=== PATIENT | male | born 1990 | race Caucasian/White ===

== ENCOUNTER 2018-08-10 13:13 | Emergency (ER) | payer MEDICAID, SELFPAY ==
[2018-08-10 13:16] VITALS: BP 150/94; PULSE 136; RESP 16; TEMP 37.6; O2SAT 96
[2018-08-10 13:40] LABS: Bilirubin Negative (Negative); Blood Trace-intact (Negative); Clarity Clear; Glucose 500 mg/dL (Negative); Ketones 40 mg/dL (Negative); Leukocyte Esterase Negative (Negative); Nitrite Negative (Negative); Specific Gravity >= 1.030 (1.005-1.025); pH 5.5 (5-8)
[2018-08-10] MEDS: Normal Saline 2,000 ML 1000 ML IV ×2 (13:45→14:14)
--- NOTE | 2018-08-10 13:45 | ED.GENADUL_ITS ---
Discharge Plan Disposition Patient Disposition: [facility] Condition: Good Discharge Details Chief Complaint: PsychEval Clinical Impression: Depression with suicidal ideation, Acute dehydration Primary Care Provider: Dallin Crocker ED Provider: Mario Isbell Home Meds and New Rx's Prescriptions: No Action metformin 500 MG tablet 500 mg PO BID Qty: 180 RF: 4 insulin glargine [Lantus U-100 Insulin] 100 UNIT/1 ML solution 15 - 50 u Sub-Q nightly Qty: 5 RF: 3 insulin syringe-needle U-100 1 EACH syringe 1 ea Miscellaneous TID Qty: 100 RF: 5 insulin syringe-needle U-100 [BD Insulin Syringe] 1 EACH syringe 1 ea Miscellaneous BID Qty: 180 RF: 3 Medical Decision Making This is a pleasant 28-year-old male who presents for suicidal ideations and attempt. Last night he attempted to kill himself by putting a rope around his neck but did not jump off the chair. He states that he continually wants to kill himself and end his life. He clearly does have a plan. He did have a notable amount of drinking last night, as well as cocaine use. He denies any auditory or visual hallucinations. He denies any other recent suicidal attempts. Physical exam demonstrates no significant abnormalities except for moderate tachycardia. We will rehydrate the patient, evaluate for any significant electrolyte abnormality or other metabolic abnormality, consult mental health for further evaluation. 5:30 PM Patient's laboratory workup has returned demonstrates mild leukocytosis which I feel secondary to reactive leukocytosis from cocaine use notable dehydration. Patient was given 3 L of normal saline his heart rate is now normalized. He shows no signs of infection with no cough, no fever, negative urinalysis. No bandemia on workup. Electrolytes are within normal limits. TSH is normal. Salicylates and acetaminophen are normal. UDS is positive for cocaine. Patient does appear clinically sober at this time, and shows no signs of intoxication. The patient is able to speak clearly. There is no demonstration of any slurring of speech. There is evidence of clear decision making capacity. Patient is able to ambulate well without any difficulty. There are no signs of ataxia or stumbling motions. The patient continues to demonstrate and expressed suicidal thoughts. We contacted [facility], and I spoke with Dr. Shepard, he agrees with the current assessment plan and the need for inpatient admission. Patient will be transferred Via Electronic Prepress System Operator. I have extensively reviewed the treatment plan and discharge instructions with the patient and their family. I have addressed all patient concerns at this time. The patient and family was made aware of what symptoms to monitor for that would warrant a return to the emergency department. Discussed the plan with the patient and family, they demonstrate verbal understanding and agreement with our assessment and plan at this time. HPI General Date/Time Provider Initiated Documentation: 08/10/18 13:20 . HPI Narrative: This is a 28-year-old male with a past medical history of type 2 diabetes who does utilize insulin, who presents today for severe depression. The patient states that he has dealt with depression ever since high school, however over the last 24-48 hours he has become extremely depressed. He wants to end his life. He tried to hang himself last night, had a rope around his neck but did not jump off the chair. He states that it was thoughts of his young daughter that kept him from doing this. Also last night he went on a notable binge of alcohol and cocaine use. This morning he was supposed to move to a new house with his significant other and children, however he came here instead for evaluation of his thoughts. He denies any auditory or visual hallucinations. He denies any homicidal ideations. He is not taking his medications for quite some time secondary to lack of funding. Past surgical history is positive for right ankle surgery and appendectomy. He denies any pertinent family history. He denies any other complaints at this time. He denies any recent suicide attempts, or recent admission for hospitalization of suicide. Related Data Home Medications Medication Instructions Recorded Confirmed metformin 500 mg PO BID #180 tab-cap 01/03/17 08/10/18 insulin glargine [Lantus Vial] 15 - 50 u SUB-Q nightly #5 vial 01/19/17 08/10/18 insulin syringe-needle U-100 #100 syringe 01/31/17 insulin syringe-needle U-100 #180 syringe 02/05/17 [Insulin Syringe] Allergies Allergy/AdvReac Type Severity Reaction Status Date / Time No Known Allergies Allergy Unverified 08/10/18 13:22 General Stated Complaint: PsychEval CHRISSY: 2 Review of Systems Review of Systems All systems reviewed & are unremarkable except as noted in HPI and below PFSH Social History Smoking/Tobacco Use Status: Current every day Surgical History Appendectomy (09/07/96) Exam Narrative Exam Narrative: 1.Const: Well-nourished, Well-developed, appearing stated age 2.Eyes: PERRL, no conjunctival injection, and symmetrical lids. 3.ENT: Atraumatic external nose and ears. Moist MM. Neck: Symmetric, trachea midline, No thyromegaly. 4.CVS: +S1/S2, No murmurs or gallops. Peripheral pulses 2+ and equal in all extremities. Brisk capillary refill in all extremities. 5.RESP: Unlabored respiratory effort. Clear to auscultation bilaterally. No wheezes rales or rhonchi 6.GI: Soft, Nontender/Nondistended, No hepatosplenomegaly. No guarding or rebound. 7.MSK: Normocephalic/Atraumatic, Extremities w/o deformity or ttp No cyanosis or clubbing, Normal movement of all extremities 8.Skin: Warm, Dry. No rashes or lesions. 9.Neuro: senior product marketing manager II-XII grossly intact. Sensation grossly intact, no focal neurologic deficits. 10.Psych: Affect is appear depressed. Patient is emotionally labile, he is actively crying. Course Vital Signs Temperature 37.6 C 08/10/18 13:16 Pulse 136 H 08/10/18 13:16 Respiratory Rate 16 08/10/18 13:16 Blood Pressure 150/94 H 08/10/18 13:16 Pulse Oximetry 96 08/10/18 13:16 Temperature 37.6 C 08/10/18 13:16 Temperature Source Skin 08/10/18 13:16 Pulse 136 H 08/10/18 13:16 Respiratory Rate 16 08/10/18 13:16 Respiratory Effort Non-Labored 08/10/18 13:20 Blood Pressure 150/94 H 08/10/18 13:16 Pulse Oximetry 96 08/10/18 13:16 Pain Level 5 08/10/18 13:16
[2018-08-10 13:52] LABS: *AMPHETAMINES SCREEN URINE Negative (Negative); *BARBITURATES SCREEN URINE Negative (Negative); *BENZODIAZEPINES SCREEN URINE Negative (Negative); Cannabinoids THC Negative (Negative); Cocaine Screen,Urine POSITIVE (Negative); METHADONE URINE SCREEN Negative (Negative); OPIATES URINE SCREEN Negative (Negative)
[2018-08-10 13:53] LABS: Bacteria Negative HPF (Negative); C & S Indicated? No; Casts Negative LPF (Negative); Crystals Negative HPF (Negative); Epithelial Cells Negative HPF (Negative); Mucus Trace (Negative); Other Cells Rare Transitional (Negative); RBC 0-2 (0-2); WBC Negative HPF (0-5)
[2018-08-10 13:56] LABS: BE (Venous) -2.5 mmol/L (-3-3); HCO3 (Venous) 22 mmol/L (22-28); O2 Sat (Venous) 88 % (70-80); TCO2 (Venous) 19 mmol/L (22-29); pCO2 (Venous) 35 mm/Hg (34-47); pH (Venous) 7.41 (7.32-7.43); pO2 (Venous) 47 mm/Hg (28-44)
[2018-08-10 13:57] LABS: Tricyclic Antidepressants Negative (Negative)
[2018-08-10 14:18] LABS: Salicylate 3.6 mg/dL (2.8-20.0)
[2018-08-10 14:23] LABS: Acetaminophen < 2 ug/mL (10-30)
[2018-08-10 14:28] LABS: ALT 66 U/L (12-78); AST 15 U/L (15-37); Albumin 4.8 g/dL (3.4-5.0); Alkaline Phosphatase 123 U/L (46-116); Anion Gap 18.1 mmol/L (3-11); BUN 5 mg/dL (7-18); Bilirubin, Total 0.6 mg/dL (0.2-1.0); CO2 22.9 mmol/L (21.0-32.0); CREATININE 0.81 mg/dL (0.70-1.30); Calcium 9.2 mg/dL (8.5-10.1); Chloride 94 mmol/L (98-107); ETHANOL BLOOD 11.1 mg/dL (<3); Glucose 226 mg/dL (70-100); Potassium 3.5 mmol/L (3.5-5.1); Sodium 135 mmol/L (136-145); TSH 1.54 uIU/mL (0.358-3.74); Total Protein 8.8 g/dL (6.4-8.2)
[2018-08-10 14:55] LABS: Abs Immature Grans 0.04 k/cumm (0.0-0.09); Absolute Basophil Count 0.02 k/cumm (0.0-0.2); Absolute Eosinophil Count 0.02 k/cumm (0.0-0.7); Absolute Lymphocyte Count 2.24 k/cumm (1.2-3.4); Absolute Monocyte Count 0.95 k/cumm (0.11-0.7); Basophils % 0.1; Eosinophils % 0.1; HCT 46.1 % (40.0-50.0); HGB 17.5 g/dL (13.5-17.5); Immature Grans % 0.2; Lymphocytes % 13.7; Mean Corpuscular Hemoglobin 33.5 pg (27.0-33.0); Mean Corpuscular Volume 88.1 fL (80-95); Mean Platelet Volume 9.4 fL (8.0-11.0); Monocytes % 5.8; Neutrophils % 80.1; Platelet Count 251 x1000/uL (130-400); RBC 5.23 m/cumm (4.50-6.00); RBC Distribution Width 11.7 % (11.8-14.1); White Blood Cell Count 16.34 k/cumm (4.4-10.8)
[2018-08-10 14:59] LABS: Absolute Neutrophil Count 13.09 k/cumm (1.2-6.7)
[2018-08-10] MEDS: Normal Saline 1,000 ML 1000 ML IV (15:25)
[2018-08-10 15:29] VITALS: BP 136/89; PULSE 108; RESP 15; TEMP 36.7; O2SAT 97
[2018-08-10 16:27] VITALS: PULSE 96
--- NOTE | 2018-08-10 16:59 | PDOC.ERCMPRO ---
- If Service Date Differs Date of service: 08/10/18 Time of Service: 16:59 Care Management Progress Note Aravind reports suicidal thoughts last evening but did not follow through with the attempt. He has been appropriate and cooperative while in the ER. teacher physically impaired TESSY paged at [phone]. At approximately 1700, patient offered a bed at [facility]. Following doc to doc and nurse to nurse, Aravind will be transported via civil preparedness officer. Aravind's partner, Ghada, is in the room with Aravind. CM reviewed safety plan and plans for transport with patient and Ghada. Both are agreeable to the plan. VOLUNTARY FOR INPATIENT PSYCHIATRIC STABILIZATION. [facility] Participants: Ailyn, RN, Ghada, [facility], Peggy JONES CM, Summer, Nursing Biochemistry Technician. Time and Date: 08/10/18 1648 Safety plan has been established with patient, and care team, to adhere to patient goals, identify restrictions based on behavioral status, address nutrition, and determine allowed personal belongings, tools for hygiene and personal care. Determine level of activity including ambulation, level of supervision, visitors, and determine privileges based on behaviors and level of engagement by patient. SAFETY PLAN: 1. Will remain on suicide precautions and in paper clothes. 2. Will remain in room under direct supervision of one-on-one staff at all times provided by PEREZ, SOLAR ELECTRIC/PHOTOVOLTAIC INSTALLER senior project leader/team lead. 3. May have paper cups, plates, finger foods as well as a metal spoon with which to eat meals. [facility] staff will be responsible for accounting of utensils after meals. 4. Supervised bathroom privileges. 5. Comfort bath system only. 6. No personal belongings 7. May have visitors at patient discretion. 8. Follow [facility] Management of the Admitted Behavioral Health Patient policy printed and attached to the safety plan in physical chart. [facility] will be coordinating placement at inpatient facility, last updates included the following: Patient has been accepted at [facility]. Awaiting doc to doc and nurse to nurse prior to transport via [place] Web Project Manager. Patient is currently voluntarily. Please contact the Pocket Closer Underwater Trapper ([phone]) and [facility] Deli Clerk ([phone]) for any needed changes in the Safety Plan. Safety plan has been provided to Nursing Biochemistry Technician. - MH Services (Omit if N/A) Current MH Services: Psychiatric In ([facility])
[2018-08-10 17:05] VITALS: BP 140/93; PULSE 98; RESP 15; TEMP 37.1; O2SAT 97
--- NOTE | 2018-08-10 17:08 | CMPROGNOTE_ITS ---
- If Service Date Differs Date of service: 08/10/18 Time of Service: 16:59 Care Management Progress Note Aravind reports suicidal thoughts last evening but did not follow through with the attempt. He has been appropriate and cooperative while in the ER. mushroom growth media mixer TESSY paged at [phone]. At approximately 1700, patient offered a bed at [facility]. Following doc to doc and nurse to nurse, Aravind will be transported via progress clerk. Aravind's partner, Ghada, is in the room with Aravind. CM reviewed safety plan and plans for transport with patient and Ghada. Both are agreeable to the plan. VOLUNTARY FOR INPATIENT PSYCHIATRIC STABILIZATION. [facility] Participants: Ailyn, RN, Ghada, [facility], Peggy JONES CM, Summer, Nursing Practice Consultant. Time and Date: 08/10/18 1648 Safety plan has been established with patient, and care team, to adhere to patient goals, identify restrictions based on behavioral status, address nutrition, and determine allowed personal belongings, tools for hygiene and personal care. Determine level of activity including ambulation, level of supervision, visitors, and determine privileges based on behaviors and level of engagement by patient. SAFETY PLAN: 1. Will remain on suicide precautions and in paper clothes. 2. Will remain in room under direct supervision of one-on-one staff at all times provided by PEREZ, SUMMER CHILD CAREGIVER information manager. 3. May have paper cups, plates, finger foods as well as a metal spoon with which to eat meals. [facility] staff will be responsible for accounting of utensils after meals. 4. Supervised bathroom privileges. 5. Comfort bath system only. 6. No personal belongings 7. May have visitors at patient discretion. 8. Follow [facility] Management of the Admitted Behavioral Health Patient policy printed and attached to the safety plan in physical chart. [facility] will be coordinating placement at inpatient facility, last updates included the following: Patient has been accepted at [facility]. Awaiting doc to doc and nurse to nurse prior to transport via [place] Drilling And Production Superintendent. Patient is currently voluntarily. Please contact the Saddle Stitching Machine Operator Pigs Feet Cleaner ([phone]) and [facility] Quality Assurance Supervisor Chassis ([phone]) for any needed changes in the Safety Plan. Safety plan has been provided to Nursing Practice Consultant. - MH Services (Omit if N/A) Current MH Services: Psychiatric In ([facility])
--- NOTE | 2018-08-10 17:15 | NUR.NOTE ---
Nursing report given to Maeve Howard RN [facility].Nursing Note:
[2018-08-10 18:08] VITALS: BP 133/82; PULSE 98; RESP 16; TEMP 37.2; O2SAT 98
[2018-08-10 18:11] VITALS: BP 133/82; PULSE 98; RESP 16; TEMP 37.2; O2SAT 98
== END 2018-08-10 18:11 | disposition short-term general hospital (02) ==
PROVIDERS: Emergency Provider Student in an Organized Health Care Education/Training Program; PCP Family Medicine
DX: F32.9 Major depressive disorder, single episode, unspecified (principal); R45.851 Suicidal ideations; F10.10 Alcohol abuse, uncomplicated; F14.10 Cocaine abuse, uncomplicated; E11.9 Type 2 diabetes mellitus without complications; Z79.4 Long term (current) use of insulin
CPT/HCPCS: 36415; 80053; 80307; 82805; 93005; 96360; 96361; 99285; 80320; 80329; 81003; 81015; 84443; 85025; 93010

== ENCOUNTER 2018-08-20 08:30 | Outpatient (CLI) | payer MEDICAID, SELFPAY ==
[2018-08-20 11:26] LABS: Hemoglobin A1C 8.2 % (4.5-6.2)
== END 2018-08-20 08:50 ==
PROVIDERS: PCP Family Medicine; Visit Provider Family Medicine
DX: E11.9 Type 2 diabetes mellitus without complications (principal)
CPT/HCPCS: 36415; 83036

== ENCOUNTER 2019-11-03 10:21 | Outpatient (CLI) | payer MEDICAID, SELFPAY ==
[2019-11-03 13:02] LABS: Abs Immature Grans 0.01 k/cumm (0.0-0.09); Absolute Basophil Count 0.03 k/cumm (0.0-0.2); Absolute Eosinophil Count 0.12 k/cumm (0.0-0.7); Absolute Lymphocyte Count 2.46 k/cumm (1.2-3.4); Absolute Monocyte Count 0.63 k/cumm (0.11-0.7); Absolute Neutrophil Count 4.49 k/cumm (1.2-6.7); Basophils % 0.4; Eosinophils % 1.6; HCT 45.9 % (40.0-50.0); HGB 16.9 g/dL (13.5-17.5); Immature Grans % 0.1 %; Lymphocytes % 31.8; Mean Corp. HGB Concentration 36.8 g/dL (32.0-36.0); Mean Corpuscular Hemoglobin 32.1 pg (27.0-33.0); Mean Corpuscular Volume 87.3 fL (80-95); Mean Platelet Volume 10.2 fL (8.0-11.0); Monocytes % 8.1; Platelet Count 262 x1000/uL (130-400); RBC 5.26 m/cumm (4.50-6.00); RBC Distribution Width 11.8 % (11.8-14.1); White Blood Cell Count 7.74 k/cumm (4.4-10.8)
[2019-11-03 13:12] LABS: ALT 96 U/L (16-63); AST 35 U/L (15-37); Albumin 4.4 g/dL (3.4-5.0); Alkaline Phosphatase 88 U/L (46-116); Anion Gap 12.4 mmol/L (3-11); BUN 9 mg/dL (7-18); Bilirubin, Total 0.4 mg/dL (0.2-1.0); CO2 26.6 mmol/L (21.0-32.0); CREATININE 0.63 mg/dL (0.70-1.30); Calcium 9.5 mg/dL (8.5-10.1); Chloride 101 mmol/L (98-107); Cholesterol 246 mg/dL (<200); Glucose 60 mg/dL (74-106); HDL Cholesterol 24 mg/dL (40-60); Potassium 3.8 mmol/L (3.5-5.1); Sodium 140 mmol/L (136-145); TSH (W/Ref FT4) 1.54 uIU/mL (0.36-3.74); Total Protein 7.7 g/dL (6.4-8.2); Triglyceride 599 mg/dL (<150); Vitamin B12 962 pg/mL (193-986)
[2019-11-03 13:28] LABS: LDL CHOLESTEROL 138 mg/dL (<100)
== END 2019-11-03 10:41 ==
PROVIDERS: PCP Internal Medicine; Visit Provider Internal Medicine
DX: E11.9 Type 2 diabetes mellitus without complications (principal); R00.0 Tachycardia, unspecified; R50.9 Fever, unspecified
CPT/HCPCS: 36415; 80053; 80061; 83721; 82607; 84443; 85025

== ENCOUNTER 2019-11-04 03:35 | Outpatient (CLI) | payer MEDICAID, SELFPAY | END 2019-11-04 03:55 | PROVIDERS: PCP Internal Medicine; Visit Provider Internal Medicine | DX: R00.0 Tachycardia, unspecified (principal); I49.1 Atrial premature depolarization | CPT/HCPCS: 93225 ==

== ENCOUNTER 2019-11-07 09:17 | Outpatient (CLI) | payer MEDICAID, SELFPAY ==
--- NOTE | 2019-11-10 08:25 | W.HOLTRPT ---
Date of service: 11/10/19 Time of Service: 08:25 Holter Monitor Report Holter Monitor Note: There is a 48-hour Holter monitor ordered for indication of tachycardia. ?Patient was in normal sinus rhythm for the majority of the recording. ?The patient's mean heart rate was 103 bpm (77 bpm - 163 bpm) ?There were 0 episodes of supraventricular tachycardia and 9 singular premature atrial contractions. ?There were 0 episodes of ventricular tachycardia and 0 singular ventricular ectopic beats. ?There were 0 episodes of atrial fibrillation, no pauses greater than 3 seconds and no evidence of high degree heart block. ?Patient diary events were associated with sinus rhythm and sinus tachycardia up to 123 bpm.
== END 2019-11-07 09:37 ==
PROVIDERS: PCP Internal Medicine; Visit Provider Internal Medicine
DX: R00.0 Tachycardia, unspecified (principal); I49.1 Atrial premature depolarization
CPT/HCPCS: 93226

== ENCOUNTER 2019-11-19 11:10 | Outpatient (CLI) | payer MEDICAID, SELFPAY ==
[2019-11-19 12:58] LABS: Hemoglobin A1C 6.6 % (3.8-5.6)
[2019-11-19 13:08] LABS: Folate 17.2 ng/mL (8.6-20.0)
[2019-11-20 10:51] LABS: Campylobacter PCR Negative (Negative); Salmonella PCR Negative (Negative); Shiga Toxin PCR Negative (Negative); Shigella/Enteroinvasive Ecoli Negative (Negative)
== END 2019-11-19 11:30 ==
PROVIDERS: PCP Internal Medicine; Visit Provider Internal Medicine
DX: E11.9 Type 2 diabetes mellitus without complications (principal); R19.7 Diarrhea, unspecified
CPT/HCPCS: 36415; 87329; 87505; 82746; 83036; 87177; 87324

== ENCOUNTER 2020-02-24 08:24 | Outpatient (CLI) | payer MEDICAID, SELFPAY | END 2020-02-24 08:44 | PROVIDERS: PCP Nurse Practitioner; Visit Provider Internal Medicine Cardiovascular Disease | DX: R00.0 Tachycardia, unspecified (principal); R07.89 Other chest pain | CPT/HCPCS: 93005; 93010 ==

== ENCOUNTER 2020-03-09 01:15 | Outpatient (CLI) | payer MEDICAID, SELFPAY ==
--- NOTE | 2020-03-09 07:30 | DI.US_ITS ---
APPROVED REPORT EXAM: Comprehensive 2D, Doppler, and color-flow Echocardiogram Patient Location: Out-Patient Procurement Specialist: Ely Rojas RDCS (AE) Indications: Tachycardia Other Information Study Quality: Good Conclusion Left Ventricle : The left ventricle is normal size. The left ventricular systolic function is normal. The left ventricular ejection fraction is within the normal range. There is normal left ventricular wall thickness. There is normal LV segmental wall motion. The left ventricular diastolic function is normal. LVEF is 55-60%. Right Ventricle : The right ventricle is normal size. The right ventricular systolic function is norm al. The RVSP is 20 mmHg. Atria : The left atrium size is normal. The right atrium size is normal. Valves: There are no hemodynamically significant valvular lesions. Great Vessels : IVC is normal in size and collapses >50% with inspiration. There is no prior echocardiogram available for comparison. Wall motion Left Ventricle The left ventricle is normal size. The left ventricular systolic function is normal. The left ventric ular ejection fraction is within the normal range. There is normal left ventricular wall thickness. T here is normal LV segmental wall motion. The left ventricular diastolic function is normal. There is no ventricular septal defect visualized. LVEF is 55-60%. Right Ventricle The right ventricle is normal size. The right ventricular systolic function is normal. The RVSP is 20 mmHg. Atria The left atrium size is normal. The right atrium size is normal. The interatrial septum is intact wit h no evidence for an atrial septal defect. Aortic Valve The aortic valve is normal in structure. There is no aortic valvular stenosis. No aortic regurgitatio n is present. Mitral Valve The mitral valve is normal in structure. No evidence of mitral valve stenosis. Trace mitral regurgita tion. Tricuspid Valve The tricuspid valve is normal in structure. There is no tricuspid valve stenosis. Trace tricuspid reg urgitation. Pulmonic Valve The pulmonary valve is normal in structure. There is no pulmonic valvular stenosis. Trace pulmonic re gurgitation. Great Vessels The aortic root is normal in size. The ascending aorta is normal in size. IVC is normal in size and c ollapses >50% with inspiration. Pericardium There is no pericardial effusion. There is no pleural effusion. 2D Dimensions IVSD d PLAX 0.87 cm M: 0.6-1.2 LV Vol A2C d MOD 115.0 mL LVPW d PLAX 0.91 cm M: 0.6 - 1.2 LV Vol A4C d MOD 136.9 mL LVID d PLAX 4.38 cm M: 4.2 - 5.8 LA vol/ BSA A2C s A-L 13.2 mL/m2 LVDs 2.75 cm M: 2.5 - 4.0 LA vol/ BSA A4C s A-L 19.3 mL/m2 Ao Root d 3.24 cm M: 3.1 - 3.7 LA Vol/ BSA Biplane s A-L 17.7 mL/m2 RA Area A4C 14.37 cm2 LA Area A4C s MOD 16.38 cm2 RA Vol/ BSA A4C s A-L 14.7 mL/m2 LA Area A2C s MOD 12.22 cm2 Ao Asc Diam d 3.03 cm M: 2.6 - 3.4 LV EF A4C MOD 58.1 % LV EF Teichholz 66.4 % LV EF A2C MOD 53.8 % LVEF (Matias's) 54.83 % M: 52 - 72 LV EF Biplane MOD 54.8 % LV Volume 90.06 mL M: 62 - 150 LV Volume Index 38.00 mL/m2 M: 34 - 74 LV Vol Biplane MOD 126.7 mL FS 36.40 % M-Mode TAPSE 3.38 cm (M/F) >1.7 LV Diastology MV E' medial 0.082 (>0.07 m/s) E/A Ratio 1.5 LV E/e MED 11.75 (<14) MV E Vmax 0.97 (0.4-1.3 m/s) MV E' lateral 0.116 (>0.1 m/s) MV A Vmax 0.65 (0.4-1.3 m/s) LV E/e LAT 8.30 (<14) MV E/A Ratio 1.47 MV E/E' medial 11.79 MV E/E' lateral 8.32 Aortic Valve LVOT Area 2.90 cm2 AoV Area Vmax 2.60 cm2 LVOT Vmax 1.36 m/s AoV Area/ BSA (Vmax) 1.10 cm2/m2 LVOT Mean Joaquin. 0.97 m/s FREDO Mean Joaquin. 2.77 cm2 LVOT Peak Grad 7.4 mmHg FREDO Mean Joaquin. Index 1.17 cm2/m2 LVOT Mean Grad 4.2 mmHg LVOT VTI 0.263 m LVOT Diam s 1.90 cm AoV Vmax 1.52 m/s Velocity Ratio 0.89 AoV Mean Joaquin. 1.01 m/s AoV Peak Grad 9.3 mmHg LVOT SV 76.26 mL AoV Mean Grad 4.6 mmHg AoV VTI 0.293 m AoV Area VTI 2.61 cm2 AoV Area/ BSA (VTI) 1.10 cm/m2 Mitral Valve MV DT 204 (160-240 msec) MV PHT 59 msec MV Area PHT 3.71 cm2 Pulmonary Valve PV Vmax 1.01 (0.5-1.5 m/s) RVOT Peak Gr. 2.46 mmHg PV Peak Grad 4.1 mmHg RVOT Mean Gr. 1.30 mmHg PV Mean Grad 2.2 mmHg RVOT VTI 0.181 m PV VTI 0.220 m RVOT Vmax 0.78 m/s Tricuspid Valve TR Peak Grad 17.3 mmHg TR Vmax 2.08 m/s RA Pressure 3.00 mmHg RVSP (TR) 20.4 mmHg
--- NOTE | 2020-03-09 09:00 | ETT_ITS ---
APPROVED REPORT Exam: Exercise Treadmill Patient Location: Out-Patient Room/Bed: Stress Nurse: Tanna Waggoner RN BMI: 31.45 Baseline Rhythm: Sinus Rhythm Medical History Medical History: Depression, Diabetic ??? Insulin, Smoking Allergies: Bupropion Cardiac Risk Factors: Diabetes (insulin), FHX of CAD, Smoking Exercise History: Physically active Lung Sounds: Clear to auscultation Heart Sounds: Regular Stress Test Details Test: Exercise stress testing was performed using a Jonathon protocol. Rest Stress HR Resting HR Supine: 80 bpm Max Heart Rate (APMHR): 191 bpm Resting HR Standin bpm Target HR (85% APMHR): 162 bpm Max HR Achieved: 174 bpm % of APMHR: 91 Recovery HR: 99 bpm HR response to stress: Normal HR response to stress BP Resting BP Supine: 120/78 mmHg Resting BP Standin/80 mmHg Max BP: 148/64 mmHg Recovery BP: 122/78 mmHg BP response to stress: Normal blood pressure response to stress. ECG Resting ECG: Sinus Rhythm Stress ECG: Sinus Tachycardia ST Change: No significant ST segment changes Arrhythmia: None, APC's Recovery ECG: Sinus Rhythm Recovery ST Change: No significant ST segment changes Recovery Arrhythmia: None Clinical Reason for Termination: Fatigue Stress Symptoms: chest tightness Exercise duration: 12 min00 sec Highest Stage Reached: Stage 4: 4.2 mph at 16% grade. Exercise capacity: 13.48 METs Functional Capacity: Average Capacity Stress ECG Conclusion 1. Excised for 12 minutes (13 METS). Rate-pressure product was 25,000. 2. The patient had chest tightness but this did not limit his exercise. 3. Heart rate and blood pressure response were normal (heart rate dropped by greater than 12 bpm at 2 minutes of recovery) 4. There was no evidence of ischemia on the ECG portion of the exam. 5. The Pennington Score ( 7) estimates an annual cardiovascular mortality of 0% and a five year survival of 95%. Using the Pennington Score there is a low probability of any angiographic coronary disease. Stress Test Summary STAGE Time (mins) Speed (mph) Grade (%) HR BP SYMPTOMS METS Supine 80 120/78 Standing 87 124/80 3 9 3.4 14 3 out of 10 chest tightness 10.2 1 min recovery 122 148/64 3 min recovery 138 142/70 6 min recovery 148 126/74 chest tightness subsided. 9 min recovery 104 122/78
== END 2020-03-09 01:35 ==
PROVIDERS: PCP Nurse Practitioner; Visit Provider Internal Medicine Cardiovascular Disease
DX: R07.9 Chest pain, unspecified (principal); R00.0 Tachycardia, unspecified; F32.9 Major depressive disorder, single episode, unspecified; Z82.49 Family history of ischemic heart disease and other diseases of the circulatory system
CPT/HCPCS: 93017; 93306

== ENCOUNTER 2020-05-30 17:46 | Emergency (ER) | payer MEDICAID, SELFPAY ==
[2020-05-30 17:51] VITALS: BP 156/84; PULSE 100; RESP 16; TEMP 36.7; O2SAT 99
--- NOTE | 2020-05-30 18:29 | ED.GENADUL_ITS ---
Discharge Plan Disposition Patient Disposition: HOME Condition: Stable Discharge Details Chief Complaint: Chest/Rib Clinical Impression: Left rib fracture Primary Care Provider: Dacia Rojas ED Provider: Marion Tillman Home Meds and New Rx's Prescriptions: New lidocaine [Lidoderm] 5 % adhesive patch,medicated 1 patch TP DAILY PRN (Reason: pain) Qty: 15 RF: 0 Continued (DME) blood-glucose meter [OneTouch Ultra2 Meter] Misc See Rx Instructions .ROUTE .MEDSUPPLY Qty: 1 RF: 0 (DME) lancets [OneTouch UltraSoft Lancets] Misc See Rx Instructions .ROUTE .MEDSUPPLY Qty: 50 RF: 6 Glucerna 1 Pavel 0.04-1 gram-kcal/mL liquid See Rx Instructions PO DAILY MDD one bottle Qty: 237 RF: 12 insulin lispro [Humalog KwikPen Insulin] 100 unit/mL insulin pen 10 unit SC TID MDD 80 units Qty: 30 RF: 5 atenolol 50 mg tablet 50 mg PO DAILY Qty: 90 RF: 3 atorvastatin 40 mg tablet 40 mg PO DAILY Qty: 90 RF: 4 Glucagon Emergency Kit (human) 1 mg recon soln 1 mg SC Q20M PRN (Reason: hypoglycemia) Qty: 3 RF: 3 insulin glargine-lixisenatide 100 unit-33 mcg/mL insulin pen 25 unit SC BID RF: 0 (DME) Comfort EZ Pen [place] 33 gauge x 3/16 needle See Rx Instructions .ROUTE .MEDSUPPLY Qty: 300 RF: 3 (DME) blood sugar diagnostic [OneTouch Ultra Blue Test Strip] Strip See Rx Instructions .ROUTE .MEDSUPPLY Qty: 50 RF: 6 venlafaxine 150 mg capsule,extended release 24hr 150 mg PO DAILY Qty: 90 RF: 3 (DME) Dexcom G6 Sensor Device See Rx Instructions .ROUTE .MEDSUPPLY Qty: 9 RF: 4 (DME) Dexcom G6 Transmitter Device See Rx Instructions .ROUTE .MEDSUPPLY Qty: 2 RF: 4 gabapentin 300 mg capsule 300 mg PO TID Qty: 90 RF: 4 quetiapine 100 mg tablet 300 mg PO DAILY Qty: 90 RF: 4 acamprosate 333 mg tablet,delayed release (DR/EC) 666 mg PO BID Qty: 120 RF: 4 Discharge Instructions Instructions: Rib Fracture (ED) Additional Instructions: Alternate tylenol and motrin as needed and directed for pain. Use Lidoderm patch as needed and directed. Use the incentive spirometer as directed to encourage you to take deep breaths to prevent the development of pneumonia. Follow-up with your primary care doctor in 1 week. Return to the emergency department with any worsening or new concerning sympto ms. Discharge Data Discharge Date/Time-TO BE ENTERED AT DEPARTURE: 05/30/20 19:50 Discharge Physician: Marion Tillman Medical Decision Making 30-year-old male presents with left mid anterolateral rib pain after tripped and fell hitting his left ribs on cement a few hours prior to arrival. Normal oxygen saturation. Lungs clear. Abdomen soft nontender. Will refer for rib and chest x-ray and give a dose of Motrin and Lidoderm patch and reassess. X-ray notes minimally displaced left sixth rib fracture. Patient declines any narcotic pain medication as he is a recovering alcoholic. Sent with a prescr iption for Lidoderm patch. He was also given incentive spirometer. Advised to follow up with the primary care doctor for re-evaluation as needed. Usual and customary return precautions given prior to discharge. Medical Records Medical records reviewed: Yes I reviewed the patient's medical records. Imaging Data Radiologic Study: Radiologist's impression: XR RIBS LT W PA LAT CHEST CLINICAL HISTORY: L mid anterolateral rib pain TECHNIQUE: 2D digital imaging was performed. COMPARISON: CR CHEST 2 VIEWS PA,LAT from 07/25/2010 FINDINGS: MEDIASTINUM: Normal. HEART: Normal. PULMONARY VASCULATURE: Normal. LUNGS: Clear. PLEURAL SPACE: No pleural effusion or pneumothorax. BONE:Normal. LEFT RIBS: Minimally displaced fracture of the anterolateral aspect the left 6th rib. OTHER FINDINGS:Normal. IMPRESSION: 1. No acute pulmonary findings. 2. Minimally displaced fracture of the anterolateral aspect of the left 6th rib. HPI General Mode of arrival: ambulatory . Date/Time Provider Initiated Documentation: 05/30/20 17:51 . Limitations to Documentation: no limitations . Information obtained by: patient . HPI Narrative: Patient is a 30-year-old male who presents with left mid rib pain after tripping and falling and hitting his left ribs on cement a couple hours ago. Patient denies head injury, LOC, vomiting or any other injuries. He has not taken any medication for pain. He denies any abdominal pain. Related Data Home Medications Medication Instructions Recorded Confirmed pen needle, diabetic 33 gauge x #300 each 09/29/19 04/01/2001/04 blood sugar diagnostic #50 each 10/01/19 04/01/20 blood-glucose meter #1 each 10/01/19 04/01/20 lancets #50 each 10/01/19 04/01/20 venlafaxine 150 mg 150 mg PO DAILY #90 cap 10/06/19 05/30/20 capsule,extended release 24 hr glucagon (human recombinant) 1 mg 1 mg SC Q20M PRN #3 each 11/14/19 05/30/20 solution for injection insulin lispro 100 unit/mL 10 unit SC TID #30 ml MDD 80 units 11/19/19 04/01/20 subcutaneous pen blood-glucose sensor #9 each 12/12/19 04/01/20 blood-glucose transmitter #2 each 12/12/19 04/01/20 nut.tx.gluc intol,lf,soy-fiber See Rx Instructions PO DAILY #237 12/22/19 05/30/20 0.04 gram-1 kcal/mL liquid ml MDD one bottle insulin glargine 100 25 unit SC BID ml 02/13/20 05/30/20 unit-lixisenatide 33 mcg/mL subcutaneous pen gabapentin 300 mg capsule 300 mg PO TID #90 cap 03/04/20 05/30/20 quetiapine 100 mg tablet 300 mg PO DAILY #90 tab 03/04/20 05/30/20 acamprosate 333 mg tablet,delayed 666 mg PO BID #120 tab 03/19/20 05/30/20 release atenolol 50 mg tablet 50 mg PO DAILY #90 tab 04/01/20 05/30/20 atorvastatin 40 mg tablet 40 mg PO DAILY #90 tab 04/01/20 05/30/20 lidocaine [Lidoderm] 1 patch TP DAILY PRN #15 each 05/30/20 Previous Rx's Medication Instructions Recorded pen needle, diabetic 33 gauge x #300 each 09/29/1901/04 blood sugar diagnostic #50 each 10/01/19 blood-glucose meter #1 each 10/01/19 lancets #50 each 10/01/19 venlafaxine 150 mg 150 mg PO DAILY #90 cap 10/06/19 capsule,extended release 24 hr glucagon (human recombinant) 1 mg 1 mg SC Q20M PRN #3 each 11/14/19 solution for injection insulin lispro 100 unit/mL 10 unit SC TID #30 ml MDD 80 units 11/19/19 subcutaneous pen blood-glucose sensor #9 each 12/12/19 blood-glucose transmitter #2 each 12/12/19 nut.tx.gluc intol,lf,soy-fiber See Rx Instructions PO DAILY #237 12/22/19 0.04 gram-1 kcal/mL liquid ml MDD one bottle gabapentin 300 mg capsule 300 mg PO TID #90 cap 03/04/20 quetiapine 100 mg tablet 300 mg PO DAILY #90 tab 03/04/20 acamprosate 333 mg tablet,delayed 666 mg PO BID #120 tab 03/19/20 release atenolol 50 mg tablet 50 mg PO DAILY #90 tab 04/01/20 atorvastatin 40 mg tablet 40 mg PO DAILY #90 tab 04/01/20 lidocaine [Lidoderm] 1 patch TP DAILY PRN #15 each 05/30/20 Allergies Allergy/AdvReac Type Severity Reaction Status Date / Time bupropion [From Wellbutrin] AdvReac Severe nightmares, Verified 04/01/20 14:16 anger lobster Allergy Mild Uncoded 05/30/20 17:55 General Stated Complaint: Chest/Rib CHRISSY: 3 Review of Systems All systems reviewed & are unremarkable except as noted in HPI and below Constitutional Constitutional: Reports as per HPI, Denies chills and Denies fever(s) Eyes Eyes: Denies blurry vision ENT Ears, Nose, Mouth, and Throat: Denies dizziness, Denies sore throat and Denies throat swelling Cardiovascular Cardiovascular: Denies chest pain and Denies dyspnea Respiratory Respiratory: Denies cough and Denies dyspnea Gastrointestinal Gastrointestinal: Denies abdominal pain, Denies diarrhea and Denies vomiting Genitourinary Genitourinary: Denies hematuria and Denies dysuria Musculoskeletal Musculoskeletal: Denies back pain and Denies numbness Integumentary/Breasts Skin/Breast: Denies lesions and Denies rash Neurologic Neurologic: Denies dizziness, Denies localized weakness and Denies numbness Allergic/Immunologic Allergic/Immunologic: Denies throat swelling [facility] Medical History (Updated 05/30/20 @ 19:23 by Marion Tillman DO) Cocaine use (Inactive ~08/10/18) Encopresis (Inactive) Enuresis (Inactive) Fracture of right forearm (Inactive 05/19/95) History of ETOH abuse (Acute) Substance abuse (Inactive) Surgical History Appendectomy (09/07/96) Status post appendectomy (Inactive 09/07/96) Social History Smoking/Tobacco Use Status: Current every day Alcohol Intake: former Drug use: Binges Substance use type: does not use Seatbelt use: always Helmet use: Yes Do you feel safe in your relationship?: No Exam Const General: cooperative, healthy appearing, uncomfortable (With any movement) and no acute distress HENMT Head: normal to inspection Face and sinus: normal facial exam Eyes General: appearance normal, both eyes and all related structures EOM: EOM intact bilaterally Neck Neck: normal visual inspection and No submandibular swelling Lymphatic: no lymphadenopathy noted Chest Chest: normal inspection of the chest Chest/axillae images: 1. Tenderness to palpation of mid anterior lateral ribs just below and lateral to nipple line. There is no crepitus, ecchymosis, erythema, step-off or open wounds noted. Resp Effort & Inspection: normal respiratory effort and able to speak in complete sentences Auscultation: clear to auscultation bilaterally Cardio Rate: regular rate Rhythm: regular rhythm GI Inspection: normal to inspection Palpation: soft, not firm, not rigid and nontender Auscultation: normal bowel sounds Skin General skin exam: no rashes or lesions noted Neuro General: patient alert, patient awake and patient oriented x3 Cognition: normal cognition Speech: speech normal Motor: muscle tone normal throughout Sensory Exam: no sensory deficits noted Extrem General: normal to inspection, full ROM, capillary refill normal, no calf tenderness bilaterally and no edema Psych Appearance: grossly normal Mental Status: mental status grossly normal Speech and Movement: speech and movement normal Affect: normal affect Course Vital Signs Vital signs: Vital Signs Temperature 98.1 F 05/30/20 17:51 Pulse 100 H 05/30/20 17:51 Respiratory Rate 16 05/30/20 17:51 Blood Pressure 156/84 H 05/30/20 17:51 Pulse Oximetry 99 05/30/20 17:51 Temperature 98.1 F 05/30/20 17:51 Temperature Source Skin 05/30/20 17:51 Pulse 100 H 05/30/20 17:51 Respiratory Rate 16 05/30/20 17:51 Respiratory Effort Non-Labored 05/30/20 18:12 Respiratory Depth Normal 05/30/20 18:12 Respiratory Pattern Normal 05/30/20 18:12 Blood Pressure 156/84 H 05/30/20 17:51 Blood Pressure Position Sitting 05/30/20 17:51 Pulse Oximetry 99 05/30/20 17:51 Oxygen Delivery Method Room Air 05/30/20 17:51 Oxygen Flow Rate 0 05/30/20 17:51 Pain Level 8 05/30/20 18:12
[2020-05-30] MEDS: Lidocaine 5% Patch 1 PATCH TP (18:54)
[2020-05-30] MEDS: Ibuprofen 600 MG TAB PO (18:55)
--- NOTE | 2020-05-30 19:17 | DI.VRAD_ITS ---
PROCEDURE INFORMATION: Exam: XR Left Ribs Exam date and time: 05/30/2020 6:46 PM Age: 30 years old Clinical indication: Other: L mid anterolateral rib pain; Other: Fell on lt side; Patient HX: Marked ribs films with bb TECHNIQUE: Imaging protocol: XR Left ribs. Views: 2 views. COMPARISON: No relevant prior studies available. FINDINGS: Bones/joints: Minimally displaced fracture involves the anterolateral segment of the left 6th rib. No other acute left-sided rib fracture identified. Soft tissues: No left-sided parenchymal lung contusion or evidence of pneumothorax/pleural effusion is noted. IMPRESSION: No acute findings. PROCEDURE INFORMATION: Exam: XR Chest, 2 Views Exam date and time: 05/30/2020 6:46 PM Age: 30 years old Clinical indication: Other: L mid anterolateral rib pain; Other: Fell on lt side; Patient HX: Marked ribs films with bb TECHNIQUE: Imaging protocol: XR of the chest Views: 2 views. COMPARISON: No relevant prior studies available. FINDINGS: Lungs: Lungs are clear throughout with no mass or consolidation detected. Pleural space: No pneumothorax or pleural effusion is seen. Heart/Mediastinum: Heart size is normal and vessel margins are sharply defined. Bones/joints: Minimally displaced fracture involving the anterolateral segment of the left 6th rib is seen better on rib detail views from the same day. IMPRESSION: Minimally displaced fracture involving the anterolateral left 6th rib is more conspicuous on rib detail views from the same day and there is no other evidence of an acute cardiopulmonary process. Dictated and Authenticated by: Vinay Joy MD. Ordering:BLESSING Schultz MD
== END 2020-05-30 19:50 | disposition home or self-care (01) ==
PROVIDERS: Emergency Provider Physician Assistant; PCP Nurse Practitioner
DX: S22.32XA Fracture of one rib, left side, initial encounter for closed fracture (principal); W10.8XXA Fall (on) (from) other stairs and steps, initial encounter
CPT/HCPCS: 99283; 71046; 71100

== ENCOUNTER 2020-08-16 11:34 | Outpatient (CLI) | payer MEDICAID, SELFPAY ==
[2020-08-18 19:28] LABS: Patient Race White; SARS-CoV-2 RNA Undetected (Undetected); SARS-CoV-2 Specimen Source Nasal
== END 2020-08-16 11:54 ==
PROVIDERS: PCP Nurse Practitioner; Visit Provider Nurse Practitioner
DX: R05 Cough (principal)
CPT/HCPCS: U0003

== ENCOUNTER 2021-11-29 19:01 | Outpatient (REF) | payer MEDICAID, SELFPAY ==
[2021-11-29 22:19] LABS: Bilirubin Negative (Negative); Blood Negative (Negative); Clarity Clear (Clear); Glucose 100 mg/dL (Negative); Ketones Negative (Negative); Leukocyte Esterase Negative (Negative); Nitrite Negative (Negative); Specific Gravity >= 1.030 (1.005-1.025)
[2021-11-29 22:26] LABS: Bacteria Few HPF (Negative); Epithelial Cells Negative HPF (Negative); RBC Negative HPF (0-2); WBC 0-2 HPF (0-5)
[2021-11-29 22:27] LABS: C & S Indicated? No; Crystals Many Calcium Oxalate HPF (Negative); Mucus Heavy (Negative)
[2021-11-29 22:43] LABS: Microalb ug/mg Crea 28.2 ug/mg Cr
== END 2021-11-29 19:02 | disposition home or self-care (01) ==
LOC: LBN 19:01
PROVIDERS: PCP Nurse Practitioner Family; Visit Provider Family Medicine
DX: N39.0 Urinary tract infection, site not specified (principal); E11.9 Type 2 diabetes mellitus without complications; Z79.4 Long term (current) use of insulin
CPT/HCPCS: 81003; 81015; 82043; 82570

== ENCOUNTER 2024-05-11 20:49 | Emergency (ER) | payer SELFPAY ==
[2024-05-11] VITALS (42 sets, daily range): BP systolic 110–167; BP diastolic 80–114; PULSE 89–119; RESP 15–27; O2SAT 92–100
--- NOTE | 2024-05-11 20:45 | DI.CT_ITS ---
Exam(s) CT HEAD CERVICAL SPINE WO EXAM: CT HEAD CERVICAL SPINE WO CLINICAL HISTORY: TRAUMA. TECHNIQUE: Imaging Protocol: Axial computed tomography images with coronal and sagittal reformatted images were created and reviewed COMPARISON: No priors for comparison. FINDINGS: CT Head: Ventricles and Extra axial spaces: Normal in size and morphology for the patient's age. Hemorrhage: None. Cerebral parenchyma: Normal. Midline shift: None. Brainstem/Cerebellum: Normal. Calvarium: There is a comminuted mildly depressed fracture of the posterolateral wall of the left max illary sinus. There is also a comminuted fracture involving the anterior wall of the left maxillary sinus. There is a fluid level in the left maxillary sinus. Visualized Paranasal sinuses/Mastoids: Clear. Soft Tissues: There is soft tissue swelling over the left temporal and parietal bones. CT Cervical Spine: Bones: There is an acute fracture involving the anterior aspect of the right superior facet of C2. T he fracture shows no significant displacement. There is also comminuted fracture involving the anter ior aspect of the right aspect of the foramen magnum extending into the right occipital condyle. The re is mild displacement superiorly of the medial fracture fragments. Soft Tissues: Unremarkable. Lung Apices: Clear. IMPRESSION: 1. Fractures involving the anterior and posterior lateral anna of the left maxillary sinus which are mildly comminuted and depressed. There is fluid level in the left maxillary sinus likely reflecting hemorrhage. 2. No intracranial hemorrhage or acute abnormality. 3. Soft tissue swelling over the left temporal and parietal bones. 4. Acute nondisplaced fracture involving the anterior aspect of the right superior C2 facet. 5. Comminuted mildly displaced fracture involving the anterior aspect of the foramen magnum extending into the right occipital condyle. 6. Please refer to the CT scan of the chest, abdomen and pelvis for further details. RADIATION DOSE DELIVERED: Total DLP DATA REPOSITORY: All CT scans at this facility are submitted to the National Radiology Data Registry (NRDR) Dose Index Registry (DIR) with the [employer] (A[employer]). RADIATION OPTIMIZATION: All CT scans at this facility use at least one of these dose optimization te chniques: automated exposure control; mA and/or kV adjustment per patient size (includes targeted exa ms where dose is matched to clinical indication); or iterative reconstruction.
--- NOTE | 2024-05-11 20:59 | DI.CT_ITS ---
Exam(s) CT CHEST/ABD/PEL W CT THORACIC LUMBAR SPINE REC EXAM: CT CHEST/ABD/PEL W and CT thoracic and lumbar spine recons CLINICAL HISTORY: TRAUMA TECHNIQUE: Imaging Protocol: Axial computed tomography images with coronal and sagittal reformatted images were created and reviewed CONTRAST MATERIAL: Intravenous: Omnipaque 350 contrast volume:100 mL Oral: No COMPARISON: CT CT CHEST/ABD/PEL W from 05/11/2024 FINDINGS: CHEST: Tracheobronchial tree: Patent where visualized. Pulmonary parenchyma: No consolidation or dominant measurable mass. No architectural distortion. Visualized thyroid gland: Unremarkable. Mediastinum and Roseanna: No dominant adenopathy or fluid collection. The esophagus is unremarkable. Pleura: No effusion or pneumothorax. Heart: The heart is not dilated. No coronary artery calcifications are seen. No pericardial effusion. Pulmonary arteries: Due to the timing of the bolus, the pulmonary arteries are suboptimally opacified for evaluation of pulmonary emboli. No large central pulmonary embolus is seen. Aorta: Thoracic aorta non-dilated. Lymph nodes: Within normal limits. Soft tissues: Mild bilateral gynecomastia. Bones:There is a comminuted displaced fracture of the medial left clavicle. There is surrounding hem atoma and infiltration of the subcutaneous fat. There are nondisplaced fractures involving the anter ior aspects of the left 2nd, 3rd, 4th and 5th ribs. Thoracic spine recons: No acute fracture or subluxation. ABDOMEN: Liver: Normal density. No measurable mass. Portal, Superior Mesenteric, and Splenic Veins: Unremarkable. Gallbladder and Biliary Tract: No radiodense calculus or dilation. Pancreas: Normal density, no abnormal calcifications or inflammatory process. Spleen: Normal. Adrenals: No masses seen. Kidneys: Normal size, contour and axis. No radiodense stones or obstructive uropathy. No masses seen. Abdominal Aorta: Abdominal portion non-dilated. Bowel: No obstruction or bowel wall thickening. No evidence of appendicitis. Peritoneal Cavity: No ascites, collection or mesenteric inflammatory response. No free air. Lymph Nodes: Within normal limits. Bones: Within normal limits for the patient's age. Soft Tissues: Unremarkable. PELVIS: Bladder: Symmetric distention, no gross wall thickening. Reproductive Organs: Unremarkable as visualized. Lymph Nodes: Within normal limits. Bones: Within normal limits. Lumbar spine recons: No acute fracture or subluxation. IMPRESSION: 1. There is an acute comminuted displaced fracture involving the medial left clavicle with associated hematoma. 2. No definite evidence of vascular injury. 3. Nondisplaced fractures involving the left 2nd through 5th ribs. No pneumothorax. 4. No acute abdominal or pelvic organ injury. 5. No acute fracture or subluxation in the thoracic or lumbar spine. RADIATION DOSE DELIVERED: Total DLP DATA REPOSITORY: All CT scans at this facility are submitted to the National Radiology Data Registry (NRDR) Dose Index Registry (DIR) with the [employer] (ACR). RADIATION OPTIMIZATION: All CT scans at this facility use at least one of these dose optimization te chniques: automated exposure control; mA and/or kV adjustment per patient size (includes targeted exa ms where dose is matched to clinical indication); or iterative reconstruction.
[2024-05-11 21:12] LABS: Abs Immature Grans 0.09 10^3/uL (0.0-0.06); Absolute Basophil Count 0.05 10^3/uL (0.0-0.2); Absolute Eosinophil Count 0.02 10^3/uL (0.0-0.7); Absolute Lymphocyte Count 1.36 10^3/uL (1.2-3.4); Absolute Monocyte Count 0.62 10^3/uL (0.1-0.8); Absolute Neutrophil Count 5.45 10^3/uL (1.2-6.7); Basophils % 0.7 %; Eosinophils % 0.3 %; HCT 46.5 % (40.0-50.0); HGB 17.2 g/dL (13.5-17.5); Immature Grans % 1.2 %; Lymphocytes % 17.9 %; MCH 32.4 pg (27.0-33.0); MCV 88 fL (80-95); Monocytes % 8.2 %; Neutrophils % 71.7 %; Platelet Count 284 10^3/uL (130-400); RBC 5.31 10^6/uL (4.36-5.78); RDW 13.2 % (11.8-14.1); RDW-SD 41.5 fL; WBC 7.59 10^3/uL (4.4-10.8)
[2024-05-11] MEDS: Normal Saline - Diluent 50 ML VIAL IJ (21:17)
[2024-05-11] MEDS: Omnipaque 350 MG/ML 100 ML BTL IJ (21:18)
[2024-05-11 21:22] LABS: Magnesium 2.1 mg/dL (1.8-2.4)
[2024-05-11 21:24] LABS: PTT Activated 21.2 sec (23.6-32.8)
[2024-05-11 21:27] LABS: ALT 369 U/L (16-63); AST 486 U/L (15-37); Albumin 4.4 g/dL (3.4-5.0); Alkaline Phosphatase 104 U/L (46-116); Anion Gap 16.7 mmol/L (3-11); BUN 11 mg/dL (7-18); Bilirubin, Total 0.42 mg/dL (0.2-1.0); CO2 25.3 mmol/L (21.0-32.0); CREATININE 0.9 mg/dL (0.70-1.30); Calcium 9.3 mg/dL (8.5-10.1); Chloride 93 mmol/L (98-107); Creatine Kinase 183 U/L (39-308); Estimated GFR 115.65 (mL/min/1.73m2); Glucose 446 mg/dL (74-106); Potassium 4.1 mmol/L (3.5-5.1); Sodium 135 mmol/L (136-145); Total Protein 8.3 g/dL (6.4-8.2)
[2024-05-11 21:29] LABS: ETHANOL BLOOD 164.6 mg/dL (<10)
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
[2024-05-11] MEDS: Ondansetron 4 MG/2 ML VIAL (22:18)
[2024-05-11] MEDS: ACETAMINOPHEN 1,000 MG/100 ML BTL 400 MG IVPB (22:19)
[2024-05-11] MEDS: MORPHine 4 MG/ML SYR (23:43)
--- NOTE | 2024-05-14 09:18 | NUR.NOTE ---
Access chart to reconcile EKG in [employer]) with orders in [employer]. Duplicate order cancelled. Nursing Note:
== END 2024-05-11 23:50 | disposition short-term general hospital (02) ==
LOC: ER 23:07
PROVIDERS: Emergency Provider Emergency Medicine; PCP Nurse Practitioner Family
DX: S12.191A Other nondisplaced fracture of second cervical vertebra, initial encounter for closed fracture (principal); S02.113A Unspecified occipital condyle fracture, initial encounter for closed fracture; S02.842A Fracture of lateral orbital wall, left side, initial encounter for closed fracture; S42.012A Anterior displaced fracture of sternal end of left clavicle, initial encounter for closed fracture; S22.42XA Multiple fractures of ribs, left side, initial encounter for closed fracture; E11.9 Type 2 diabetes mellitus without complications; F17.290 Nicotine dependence, other tobacco product, uncomplicated; Z79.4 Long term (current) use of insulin; Y90.6 Blood alcohol level of 120-199 mg/100 ml
CPT/HCPCS: 74177; 80053; 82550; 86850; 86900; 86901; 96365; 99285; 70450; 71260; 72125; 80320; 83735; 85025; 85610; 85730; J0131; J2270; J2405; J3490

== ENCOUNTER 2024-09-21 11:37 | Emergency (ER) | payer MEDICAID, SELFPAY ==
[2024-09-21 11:45] VITALS: BP 137/85; PULSE 105; RESP 16; TEMP 36.6; O2SAT 98
--- NOTE | 2024-09-21 12:10 | W.ED.GENAD ---
Discharge Plan Disposition Patient Disposition: Home Condition: Stable Discharge Details Clinical Impression: Abscess of back Primary Care Provider: Bayron Mooney ED Provider: Oralia Colon Meds and New Rx's Prescriptions: New cephalexin 500 mg capsule 500 mg PO BID 10 Days Qty: 20 0RF Rx Instructions: Take 1 capsule twice daily for 10 days sulfamethoxazole-trimethoprim [Bactrim DS] 800-160 mg tablet 1 tab PO BID 10 Days Qty: 20 0RF No Action sildenafil [Viagra] 50 mg tablet 50 mg PO DAILY PRN (Reason: sexual activity) Qty: 30 0RF Rx Instructions: administer 30 minutes to 4 hours before activity Glucagon Emergency Kit (human) 1 mg recon soln 1 mg SC Q20M PRN (Reason: hypoglycemia) Qty: 3 3RF Rx Instructions: until response naloxone 0.4 mg/mL solution 0.2 mg subcut ONCE PRN Rx Instructions: Inject 0.5 mLs into the muscle PRN. Pay repeat 0.2 mg Q1 minute until responsive/VS improve. DO NOT exceed 2 mg total dose. (DME) pen needle, diabetic [Pen Needle] 30 gauge x 5/16 needle See Rx Instructions .Route Rx Instructions: Inject 1 each Subcut QHS for diabetes (DME) blood-glucose meter [FreeStyle Lite Meter] Kit See Rx Instructions .Route Rx Instructions: As directed acetaminophen 325 mg capsule 975 mg PO Q6H PRN (DME) Dexcom G6 Polisher Apprentice Misc See Rx Instructions .MEDSUPPLY Qty: 1 0RF Rx Instructions: As directed (DME) Dexcom G6 Sensor Device See Rx Instructions .MEDSUPPLY Qty: 3 12RF Rx Instructions: As directed (DME) Dexcom G6 Transmitter Device See Rx Instructions .MEDSUPPLY Qty: 1 3RF Rx Instructions: As directed insulin glargine [Lantus Solostar U-100 Insulin] 100 unit/mL (3 mL) insulin pen 60 unit subcut DAILY Qty: 54 3RF insulin lispro [Humalog KwikPen Insulin] 100 unit/mL insulin pen 4 unit subcut TID Qty: 15 3RF methocarbamol 750 mg tablet 750 mg PO QD-QID Qty: 90 0RF Rx Instructions: Take 1 tablet Po TID x3 days and then take 1 tablet BID x4D. mirtazapine 7.5 mg tablet 7.5 mg PO QHS Qty: 90 3RF (DME) pen needle, diabetic 31 gauge x 5/16 needle See Rx Instructions .Route Qty: 100 3RF Rx Instructions: Inject 1 each Subcut TID before meals for diabetes atenolol 100 mg tablet 100 mg PO DAILY Qty: 90 3RF venlafaxine 75 mg tablet 225 mg PO DAILY Qty: 270 3RF gabapentin 300 mg capsule 300 mg PO TID Patient Comments: take 1 capsule by mouth three times a day ibuprofen 600 mg tablet 600 mg PO Q8H PRN Patient Comments: take 1 tablet by mouth every 8 hours NEEDED FOR PAIN Discharge Instructions Instructions: Abscess Incision and Drainage ED Additional Instructions: Please take the antibiotic with yogurt or a probiotic twice daily for the next 10 days. Keep area clean and dry. Please have the packing removed in approximately 3 days. If it falls out before then that is okay. You may alternate ice and heat. Please take Tylenol or Ibuprofen with food every 4-6 hours as needed for pain and swelling. Follow up with primary care provider in 3-5 days. Return to ED sooner if any worsening swelling, fever or chills or concerns. Thank you for allowing us to care for you today. Referrals: Bayron Mooney NP [Primary Care Provider] - 5 days Discharge Data Discharge Date/Time-TO BE ENTERED AT DEPARTURE: 09/21/24 12:56 HPI General Mode of arrival: ambulatory. Date/Time Provider Initiated Documentation: 09/21/24 11:44. Limitations to Documentation: no limitations. Information obtained by: patient, RN notes reviewed and old records reviewed. HPI Narrative: 34-year-old male presents to the ER with a upper back abscess which he noticed 3 days ago. He has approximately 4 cm x 4 cm area of indurated erythemic tender raised area to his upper back. He is a diabetic, does have a history of substance abuse and cocaine use. He is a daily smoker. He does not appear to be under the influence at this time. Denies any fever or chills, he is slightly tachycardic upon arrival with a pulse of 105 he is afebrile. He reports he has had a history of MRSA. Related Data Home Medications ?Medication ?Instructions ?Recorded ?Confirmed glucagon (human recombinant) 1 mg 1 mg subcut Q20M PRN hypoglycemia 11/14/19 09/21/24 solution for injection (Glucagon #3 ea Emergency Kit) sildenafil 50 mg tablet (Viagra) 50 mg PO DAILY PRN sexual activity 06/24/21 09/21/24 #30 tabs acetaminophen 325 mg capsule 975 mg PO Q6H PRN 05/20/24 09/21/24 blood-glucose meter (FreeStyle 05/20/24 09/21/24 Lite Meter kit) naloxone 0.4 mg/mL injection 0.2 mg subcut ONCE PRN 05/20/24 09/21/24 solution pen needle, diabetic 30 gauge x 05/20/24 09/21/24 5/ (Pen Needle) blood-glucose meter,continuous #1 ea 06/02/24 09/21/24 (Dexcom G6 Polisher Apprentice) blood-glucose sensor (Dexcom G6 #3 ea 06/02/24 09/21/24 Sensor device) blood-glucose transmitter (Dexcom #1 ea 06/02/24 09/21/24 G6 Transmitter device) insulin glargine 100 unit/mL (3 60 unit (0.6 mL) subcut DAILY #54 06/02/24 09/21/24 mL) subcutaneous pen (Lantus mL Solostar U-100 Insulin) insulin lispro 100 unit/mL 4 unit (0.04 mL) subcut TID #15 mL 06/02/24 09/21/24 subcutaneous pen (Humalog KwikPen (U-100) Insulin) methocarbamol 750 mg tablet 750 mg PO QD-QID #90 tabs 06/02/24 09/21/24 mirtazapine 7.5 mg tablet 7.5 mg PO QHS #90 tabs 06/02/24 09/21/24 pen needle, diabetic 31 gauge x #100 ea 06/02/24 09/21/24/16 atenolol 100 mg tablet 100 mg PO DAILY #90 tabs 06/26/24 09/21/24 venlafaxine 75 mg tablet 225 mg (3 x 75 mg) PO DAILY #270 06/26/24 09/21/24 tabs cephalexin 500 mg capsule 500 mg PO BID Abscess 10 days #20 09/21/24 caps gabapentin 300 mg capsule 300 mg PO TID 09/21/24 09/21/24 ibuprofen 600 mg tablet 600 mg PO Q8H PRN 09/21/24 09/21/24 sulfamethoxazole 800 1 tab PO BID 10 days #20 tabs 09/21/24 mg-trimethoprim 160 mg tablet (Bactrim DS) Previous Rx's ?Medication ?Instructions ?Recorded glucagon (human recombinant) 1 mg 1 mg subcut Q20M PRN hypoglycemia 11/14/19 solution for injection (Glucagon #3 ea Emergency Kit) sildenafil 50 mg tablet (Viagra) 50 mg PO DAILY PRN sexual activity 06/24/21 #30 tabs blood-glucose meter,continuous #1 ea 06/02/24 (Dexcom G6 Polisher Apprentice) blood-glucose sensor (Dexcom G6 #3 ea 06/02/24 Sensor device) blood-glucose transmitter (Dexcom #1 ea 06/02/24 G6 Transmitter device) insulin glargine 100 unit/mL (3 60 unit (0.6 mL) subcut DAILY #54 06/02/24 mL) subcutaneous pen (Lantus mL Solostar U-100 Insulin) insulin lispro 100 unit/mL 4 unit (0.04 mL) subcut TID #15 mL 06/02/24 subcutaneous pen (Humalog KwikPen (U-100) Insulin) methocarbamol 750 mg tablet 750 mg PO QD-QID #90 tabs 06/02/24 mirtazapine 7.5 mg tablet 7.5 mg PO QHS #90 tabs 06/02/24 pen needle, diabetic 31 gauge x #100 ea 06/02/24 5/16 atenolol 100 mg tablet 100 mg PO DAILY #90 tabs 06/26/24 venlafaxine 75 mg tablet 225 mg (3 x 75 mg) PO DAILY #270 06/26/24 tabs cephalexin 500 mg capsule 500 mg PO BID Abscess 10 days #20 09/21/24 caps sulfamethoxazole 800 1 tab PO BID 10 days #20 tabs 09/21/24 mg-trimethoprim 160 mg tablet (Bactrim DS) Allergies Allergy/AdvReac Type Severity Reaction Status Date / Time bupropion (From Wellbutrin) AdvReac Severe nightmares, Verified 09/21/24 11:49 anger lobster Allergy Mild Hives Uncoded 09/21/24 11:49 General Stated Complaint: GenMedical CHRISSY: 3 Review of Systems All systems reviewed & are unremarkable except as noted in HPI and below Constitutional Constitutional: Denies body ache(s) and Denies fever(s) Integumentary/Breasts Skin/Breast: Reports as per HPI, Reports furuncle, Reports skin pain and Reports skin swelling Exam Const General: cooperative and comfortable Nutritional Appearance: average body habitus Orientation: alert, awake and oriented x3 Course Vital Signs Vital signs: Vital Signs Temperature 36.6 C 09/21/24 11:45 Pulse 105 H 09/21/24 11:45 Respiratory Rate 16 09/21/24 11:45 Blood Pressure 137/85 09/21/24 11:45 Pulse Oximetry 98 09/21/24 11:45 Temperature 36.6 C 09/21/24 11:45 Temperature Source Oral 09/21/24 11:45 Pulse 105 H 09/21/24 11:45 Respiratory Rate 16 09/21/24 11:45 Respiratory Effort Normal 09/21/24 11:51 Blood Pressure 137/85 09/21/24 11:45 Blood Pressure Position Sitting 09/21/24 11:45 Pulse Oximetry 98 09/21/24 11:45 Oxygen Delivery Method Room Air 09/21/24 11:45 Oxygen Flow Rate 0 09/21/24 11:45 Pain Level 7 09/21/24 11:45 Procedures Abscess I/D Site: Back Side (if applicable): Left Sedation/analgesia: None Local Anesthetic: Lidocaine 1% and With Epi Amount of anesthesia used (mL): 2 Technique: Incised with #11 Blade Amount of fluid expressed (mL): 5 Irrigation: No Packing used?: Plain Complications: Pain Medical Decision Making 34-year-old male presents to the ER with a upper back abscess which he noticed 3 days ago. He has approximately 4 cm x 4 cm area of indurated erythemic tender raised area to his upper back. He is a diabetic, does have a history of substance abuse and cocaine use. He is a daily smoker. He does not appear to be under the influence at this time. Denies any fever or chills, he is slightly tachycardic upon arrival with a pulse of 105 he is afebrile. He reports he has had a history of MRSA. Wound culture obtained. Area cleaned with chlorhexidine, anesthetized with 1% lidocaine with epi and pain easepain ease. Incision made with #11 blade, sanguinous purulent drainage expressed, culture obtained and sent to the lab. Patient tolerated with some difficulty. 1 strip of packing placed to keep the incision open. Dressing applied. Discussed home care patient given cephalexin and Bactrim here in the department. This text was generated using [employer] system, please disregard any oddities of phrase or misspellings. Medical Records Medical records reviewed: Yes I reviewed the patient's medical records. Quality:SDOH Health Related Social Needs: No Data to Display PFSH All Active Problems (Updated 09/21/24 @ 12:48 by Oralia Colon NP) Abscess of back (Acute) Apnea (Acute) Premature ejaculation (Acute) Sertraline helps. Erectile dysfunction (Acute) Snoring (Acute) Hypertension (Chronic) Neuropathy (Acute) Hyperlipidemia (Acute) Tobacco abuse counseling (Acute) Vaping. no cigs in 4 months as of 12/29/21 Anxiety (Chronic) not well controlled Deprivation amblyopia of right eye (Acute ~09/2018) Ptosis of right eyelid (Acute ~09/2018) Type 2 diabetes mellitus without complications (Acute ~09/2018) Myopia, bilateral (Acute ~09/2018) Depression (Chronic ~08/10/18) Medical History History of ETOH abuse Substance abuse Fracture of right forearm (05/19/95) Enuresis Encopresis Cocaine use (~08/10/18) Surgical History Status post appendectomy (09/07/96) Appendectomy (09/07/96) Social History Smoking/Tobacco Use Status: Current every day Tobacco Type: e-cigarettes Tobacco: How many years used: 14 Second Hand Exposure: Yes Smoking risk assessment performed?: Yes Alcohol Intake: current Drug use: Never Substance use type: does not use Caregiver/Support person: No Household members: family and children Housing: apartment Communication Needs: None Do you need help understanding health information?: Never Pets and animals: Yes Pets and animals: dog(s) Sexually active: Yes Do you think of yourself as: straight/heterosexual Current gender identity: male What is your relationship status?: never How often do you talk on the phone with friends or family?: three or more times per week How often do you get together with friends or relatives?: three or more times per week Do you belong to any clubs or organized social groups?: yes Panel score (0-1 are the most socially isolated patients): 2 What type of physical activity do you participate in: walking Duration: 15-30 minutes/day Frequency: daily Yamilex/Confucianism: No preference Special yamilex needs: No Seatbelt use: never Helmet use: No Drive intox or ride w/intox jeep driver: No Do you feel safe in your relationship?: No
[2024-09-21] MEDS: Sulfameth/Trimeth DS TAB 1 TAB PO (12:24)
[2024-09-21] MEDS: Cephalexin 500 MG CAP PO (12:24)
[2024-09-21] MEDS: Lidocaine 1% Pres-Free W/EPI 1/200,000 30 ML VIAL IJ (12:25)
[2024-09-21 12:53] VITALS: PULSE 99; RESP 16; O2SAT 100
== END 2024-09-21 12:56 | disposition home or self-care (01) ==
PROVIDERS: Emergency Provider Registered Nurse Emergency; PCP Nurse Practitioner Family
DX: L02.212 Cutaneous abscess of back [any part, except buttock and flank] (principal); E11.9 Type 2 diabetes mellitus without complications; F17.200 Nicotine dependence, unspecified, uncomplicated; F14.90 Cocaine use, unspecified, uncomplicated
CPT/HCPCS: 10061; 87077; 87070; 87186; 87205; J2004